=== PATIENT | female | born 1965 | race African-American/Black ===

== ENCOUNTER 2016-06-03 20:59 | Emergency (ER) | payer OTHER ==
[~2016-06-03] VITALS: Ht 157.5 cm; Wt 63.5 kg
[2016-06-03] MEDS ORDERED: DEXAMETHASONE 4 MG TAB PO ONE (21:15)
[2016-06-03 21:56] LABS: DEFINITIVE VIEW TRANSMISSION; Hemoglobin 10.8 g/dL (12.2-16.2); SUSPECT VIEW TRANSMISSION
[2016-06-03 22:03] LABS: Hematocrit 35.6 % (36.0-46.0); Mean Corpuscular Hgb Conc. 30.3 g/dL (32.0-36.0); Mean Corpuscular Volume 69.3 fL (80.0-100.0); Mean Platelet Volume 8.8 fL (7.4-10.4); Platelet Count (auto) 219 10^3/uL (140-450); White Blood Cell 3.8 10^3/uL (4.4-10.8)
[2016-06-03 22:11] LABS: INR 1.13 (0.9-1.15); Partial Thromboplastin Time 26.4 sec (22.64-33.71); Prothrombin Time 11.6 sec (9.37-12.3)
[2016-06-03 22:13] LABS: Metamyelocytes % 0; Myelocytes % 0; Promyelocytes % 0; Reactive Lymphocytes 0
[2016-06-03 22:16] LABS: Albumin 3.4 g/dL (3.4-5.0); BUN/Creatinine Ratio 17.3; Potassium 4.1 mmol/L (3.5-5.1)
[2016-06-03 22:19] LABS: Bilirubin, Total 0.2 mg/dL (0.2-1.0); Total Protein 7.4 g/dL (6.4-8.2)
[2016-06-03 22:51] LABS: Anisocytosis Moderate; Hypochromia Moderate; Microcytosis Moderate; Platelet Estimate Adequate
[2016-06-03 22:52] LABS: Ovalocytes MODERATE; Tear Drop Cells FEW
[2016-06-03 23:28] VITALS: BP 118/69
== END 2016-06-04 00:18 | disposition home or self-care (01) ==
LOC: ER 21:05
DX: J45.901 Unspecified asthma with (acute) exacerbation (principal); R42 Dizziness and giddiness
CPT/HCPCS: 36415; 71010; 80053; 84484; 84702; 85007; 85027; 85610; 85730; 93005; 99285; J8540